=== PATIENT | female | born 2000 | race Two or more races ===

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

== ENCOUNTER 2019-01-24 18:33 | Emergency (ER) | payer MEDICAID, OTHER ==
[~2019-01-24] VITALS: Ht 162.6 cm; Wt 80.4 kg
[2019-01-24 18:37] VITALS: BP 132/75
--- NOTE | 2019-01-24 18:54 | NUR ---
pt is 18 yo female would like a test, LMP was last month. Pt is IV drug user "I share needles and would like to be tested for hep C", waiting to be evaluated by provider
[2019-01-24 19:12] LABS: CLARITY,URINE CLEAR (Clear); COLOR,URINE YELLOW (Yellow); GLUCOSE, URINE NEGATIVE (Neg); KETONES,URINE TRACE mg/dl (Neg); LEUKOCYTE ESTERASE ,URINE NEGATIVE (Neg); NITRITES, URINE NEGATIVE (Neg); OCCULT BLOOD,URINE NEGATIVE (Neg); PH,URINE 5.5 (4.8-8.0); PROTEIN,URINE NEGATIVE (Neg); UROBILINOGEN,URINE 0.2 E.U/dL (0.2-1.0)
[2019-01-24 19:14] LABS: URINE HCG NEGATIVE (NEG)
[2019-01-24 19:20] LABS: UA COLLECTION TYPE CLN CATCH MIDSTREAM
== END 2019-01-24 20:30 | disposition home or self-care (01) ==
LOC: ER 18:34
DX: Z32.02 Encounter for pregnancy test, result negative (principal); F15.90 Other stimulant use, unspecified, uncomplicated
CPT/HCPCS: 81003; 81025; 99283